=== PATIENT | male | born 1930 | race Caucasian/White ===

== ENCOUNTER 2016-10-02 07:57 | Emergency (ER) | payer MEDICARE ==
[~2016-10-02] VITALS: Ht 185.4 cm; Wt 97.0 kg
[~2016-10-02 07:57] MED LIST: ALLO300T PO; ATEN25TA PO; CLOP75TA22 PO; GABA300C10 PO; MECL12.52 PO; MECLIZINE PO; METF500T27 PO; NADO20TA12 PO; OMEP-110 PO; ROSU20TA PO; [UNRECOGNIZED DRUG - OTHER] IV
[2016-10-02] MEDS ORDERED: SODIUM CHLORIDE 0.9% 1,000 ML IV ONE (08:06)
[2016-10-02 08:31] LABS: HEMOGLOBIN 12.7 g/dL (13.7-18.0)
[2016-10-02 08:43] LABS: ASPARTATE AMINO TRANSFERASE 29 U/L (15-37); BLOOD UREA NITROGEN 29 mg/dL (7-18)
[2016-10-02 08:51] LABS: IS PT STATUS REG ER OR PRE ER? YES
[2016-10-02 09:00] VITALS: BP 132/85
[2016-10-02] MEDS ORDERED: MECL12.52 PO (09:35)
[2016-10-02] MEDS ORDERED: FURO20TA3 PO (09:42)
[2016-10-02] MEDS ORDERED: CLOP75TA22 PO (09:42)
[2016-10-02] MEDS ORDERED: OMEP20TA62 PO (09:42)
[2016-10-02] MEDS ORDERED: ALLO100T30 PO (09:42)
[2016-10-02] MEDS ORDERED: POTA20TA6 PO (09:42)
== END 2016-10-02 11:21 | disposition home or self-care (01) ==
LOC: ED 08:45
DX: I50.1 Left ventricular failure, unspecified (principal); I48.91 Unspecified atrial fibrillation; I48.92 Unspecified atrial flutter; I10 Essential (primary) hypertension; E11.9 Type 2 diabetes mellitus without complications; E78.00 Pure hypercholesterolemia, unspecified; K21.9 Gastro-esophageal reflux disease without esophagitis; E78.5 Hyperlipidemia, unspecified; M10.9 Gout, unspecified; Z96.641 Presence of right artificial hip joint; Z98.62 Peripheral vascular angioplasty status; Z96.89 Presence of other specified functional implants
CPT/HCPCS: 36415; 71010; 80053; 83880; 84484; 85025; 85610; 93005; 96360; 99285; J7030

== ENCOUNTER 2016-10-31 16:10 | Inpatient (IN) | payer MEDICARE ==
[~2016-10-31] VITALS: Ht 182.9 cm; Wt 92.0 kg
[~2016-10-31 16:10] MED LIST changes: +ALLO100T30 PO; +FURO20TA3 PO; +OMEP20TA62 PO; +POTA20TA6 PO
[2016-10-31] MEDS ORDERED: SODIUM CHLORIDE FLUSH 10ML SYR IVF ONE (17:00)
[2016-10-31] MEDS ORDERED: SODIUM CHLORIDE 0.9% 1,000ML IVBOLUS ONE (17:00)
[2016-10-31 17:40] LABS: IS PT STATUS REG ER OR PRE ER? YES
[2016-10-31] MEDS ORDERED: GLIM4TAB2 PO (17:51)
[2016-10-31] MEDS ORDERED: APIX2.5T PO (17:51)
[2016-10-31] MEDS ORDERED: METO25TA2 PO (17:51)
[2016-10-31] MEDS ORDERED: ASPIRIN 81 MG TABLET CHEW ONE (18:55)
[2016-10-31] MEDS ORDERED: ASPIRIN 81 MG TABLET CHEW PO ONE (19:00)
[2016-10-31 19:09] LABS: ASPARTATE AMINO TRANSFERASE 29 U/L (15-37); BLOOD UREA NITROGEN 21 mg/dL (7-18)
[2016-10-31] MEDS ORDERED: DOCUSATE 100 MG CAPSULE PO PRN (19:30)
[2016-10-31] MEDS ORDERED: TEMAZEPAM 15 MG CAPSULE PO PRN (19:30)
[2016-10-31] MEDS ORDERED: LABETALOL 5MG/ML, 20ML IV PRN (19:30)
[2016-10-31] MEDS ORDERED: OMEPRAZOLE 20 MG CAPSULE.DR PO SCH (21:00)
[2016-10-31] MEDS ORDERED: APIXABAN 2.5 MG TABLET PO SCH (21:00)
[2016-10-31 21:55] LABS: IS PT STATUS REG ER OR PRE ER? YES
[2016-10-31] MEDS ORDERED: FUROSEMIDE 20 MG/2 ML IV ONE (23:00)
[2016-10-31] MEDS ORDERED: FUROSEMIDE 20 MG/2 ML ONE (23:07)
[2016-10-31] MEDS: ATORVASTATIN 40 MG TABLET PO SCH (23:17)
[2016-10-31] MEDS ORDERED: INSULIN SINGLE DOSE, ER SQ-INSULIN ONE (23:26)
[2016-10-31] MEDS: INSULIN REGULAR 100 UNITS/ML, 3ML VIAL SQ-INSULIN SCH (23:39)
[2016-11-01 00:50] VITALS: BP 169/92
[2016-11-01 04:24] LABS: BLOOD UREA NITROGEN 22 mg/dL (7-18)
[2016-11-01 04:32] LABS: IS PT STATUS REG ER OR PRE ER? NO
[2016-11-01 05:05] LABS: ANISOCYTOSIS 1+
[2016-11-01 05:06] LABS: POLYCHROMASIA 1+
[2016-11-01 05:07] VITALS: BP 145/92
[2016-11-01] MEDS: INSULIN REGULAR 100 UNITS/ML, 3ML VIAL SQ-INSULIN SCH ×4 (07:00→22:30)
[2016-11-01 08:25] VITALS: BP 154/89
[2016-11-01] MEDS ORDERED: GLIMEPIRIDE 4 MG TABLET PO SCH (09:00)
[2016-11-01] MEDS: METOPROLOL SUCCINATE 25 MG TAB.ER.24H PO SCH (09:41)
[2016-11-01] MEDS: APIXABAN 2.5 MG TABLET PO SCH ×2 (09:41→22:30)
[2016-11-01] MEDS: ASPIRIN 81 MG TABLET CHEW PO SCH (09:41)
[2016-11-01] MEDS: POTASSIUM CHLORIDE 20 MEQ TAB.ER.PRT PO SCH (09:41)
[2016-11-01] MEDS: ALLOPURINOL 100 MG TABLET PO SCH (09:41)
[2016-11-01] MEDS ORDERED: REGADENOSON 0.4 MG/5 ML SYRINGE ONE (11:07)
[2016-11-01 12:44] VITALS: BP 132/79
[2016-11-01 20:00] VITALS: BP 143/79
[2016-11-01] MEDS: ATORVASTATIN 40 MG TABLET PO SCH (22:30)
[2016-11-02 00:25] VITALS: BP 162/90
[2016-11-02 05:21] LABS: BLOOD UREA NITROGEN 22 mg/dL (7-18)
[2016-11-02] MEDS: INSULIN REGULAR 100 UNITS/ML, 3ML VIAL SQ-INSULIN SCH ×4 (07:00→21:00)
[2016-11-02 07:50] VITALS: BP 157/92
[2016-11-02] MEDS: ALLOPURINOL 100 MG TABLET PO SCH (10:12)
[2016-11-02] MEDS: ASPIRIN 81 MG TABLET CHEW PO SCH (10:13)
[2016-11-02] MEDS: POTASSIUM CHLORIDE 20 MEQ TAB.ER.PRT PO SCH (10:13)
[2016-11-02] MEDS: APIXABAN 2.5 MG TABLET PO SCH ×2 (10:13→21:49)
[2016-11-02] MEDS: METOPROLOL SUCCINATE 25 MG TAB.ER.24H PO SCH (10:13)
[2016-11-02 15:18] VITALS: BP 166/79
[2016-11-02 19:10] VITALS: BP 118/81
[2016-11-02] MEDS: ATORVASTATIN 40 MG TABLET PO SCH (21:49)
[2016-11-03 01:35] VITALS: BP 167/83
[2016-11-03] MEDS: INSULIN REGULAR 100 UNITS/ML, 3ML VIAL SQ-INSULIN SCH ×3 (07:00→16:00)
[2016-11-03] MEDS ORDERED: INSU100V5 SQ-INSULIN (07:26)
[2016-11-03 07:31] VITALS: BP 147/87
[2016-11-03] MEDS: ASPIRIN 81 MG TABLET CHEW PO SCH (08:35)
[2016-11-03] MEDS: APIXABAN 2.5 MG TABLET PO SCH (08:35)
[2016-11-03] MEDS: ALLOPURINOL 100 MG TABLET PO SCH (08:36)
[2016-11-03] MEDS: POTASSIUM CHLORIDE 20 MEQ TAB.ER.PRT PO SCH (08:36)
[2016-11-03] MEDS: METOPROLOL SUCCINATE 25 MG TAB.ER.24H PO SCH (08:38)
[2016-11-03 13:30] VITALS: BP 158/86
== END 2016-11-03 18:32 | DRG 64 ==
LOC: ED 18:51 → EDIP 19:00 → 5SO 11-01 00:30
PROVIDERS: ADMIT Internal Medicine; ATTEND Internal Medicine
DX: I63.9 Cerebral infarction, unspecified (principal); I50.43 Acute on chronic combined systolic (congestive) and diastolic (congestive) heart failure; N17.9 Acute kidney failure, unspecified; I48.92 Unspecified atrial flutter; F05 Delirium due to known physiological condition; I13.0 Hypertensive heart and chronic kidney disease with heart failure and stage 1 through stage 4 chronic kidney disease, or unspecified chronic kidney disease; D68.69 Other thrombophilia; D69.6 Thrombocytopenia, unspecified; E11.42 Type 2 diabetes mellitus with diabetic polyneuropathy; N18.3 Chronic kidney disease, stage 3 (moderate); E78.00 Pure hypercholesterolemia, unspecified; I25.10 Atherosclerotic heart disease of native coronary artery without angina pectoris; I48.91 Unspecified atrial fibrillation; I77.810 Thoracic aortic ectasia; K21.9 Gastro-esophageal reflux disease without esophagitis; M10.9 Gout, unspecified; Z79.01 Long term (current) use of anticoagulants; Z83.3 Family history of diabetes mellitus; Z87.891 Personal history of nicotine dependence; Z95.0 Presence of cardiac pacemaker; Z95.2 Presence of prosthetic heart valve; Z95.5 Presence of coronary angioplasty implant and graft
CPT/HCPCS: 36415; 70450; 71010; 78452; 80048; 80053; 80061; 81003; 82962; 83036; 83735; 83880; 84439; 84443; 84484; 85025; 85610; 93005; 93017; 93306; 93880; J1815; J2785; A9502; C9898; J1940; J7030

== ENCOUNTER 2016-12-09 10:08 | Emergency (ER) | payer MEDICARE ==
[~2016-12-09] VITALS: Ht 185.4 cm; Wt 96.0 kg
[~2016-12-09 10:08] MED LIST changes: +APIX2.5T PO; +GLIM4TAB2 PO; +INSU100V5 SQ-INSULIN; +METO25TA2 PO
[2016-12-09] MEDS ORDERED: SODIUM CHLORIDE 0.9% 1,000 ML IV ONE (10:31)
[2016-12-09] MEDS ORDERED: BACITRACIN ZINC OINT 500U/GM, 0.9 GM ONE (10:58)
[2016-12-09] MEDS ORDERED: SODIUM CHLORIDE FLUSH 10ML SYR IVF ONE (11:00)
[2016-12-09 11:22] LABS: BLOOD UREA NITROGEN 19 mg/dL (7-18)
[2016-12-09 11:28] LABS: IS PT STATUS REG ER OR PRE ER? YES
[2016-12-09] MEDS ORDERED: ASPIRIN 81 MG TABLET CHEW PO ONE (11:30)
[2016-12-09] MEDS ORDERED: ASPIRIN 81 MG TABLET CHEW ONE (11:34)
[2016-12-09] MEDS ORDERED: OMEP20TA62 PO (11:39)
[2016-12-09 14:11] LABS: IS PT STATUS REG ER OR PRE ER? YES
[2016-12-09 15:01] VITALS: BP 144/84
== END 2016-12-09 15:04 | disposition home or self-care (01) ==
LOC: ED 11:32
DX: S50.811A Abrasion of right forearm, initial encounter (principal); R55 Syncope and collapse; R79.89 Other specified abnormal findings of blood chemistry; I11.0 Hypertensive heart disease with heart failure; E78.00 Pure hypercholesterolemia, unspecified; K21.9 Gastro-esophageal reflux disease without esophagitis; M10.9 Gout, unspecified; E78.5 Hyperlipidemia, unspecified; E11.9 Type 2 diabetes mellitus without complications; Z96.89 Presence of other specified functional implants; Z98.62 Peripheral vascular angioplasty status; Z96.641 Presence of right artificial hip joint; X58.XXXA Exposure to other specified factors, initial encounter; Y93.89 Activity, other specified; Y92.89 Other specified places as the place of occurrence of the external cause; Y99.8 Other external cause status
CPT/HCPCS: 36415; 71010; 80048; 82040; 84484; 85025; 93005; 99285

== ENCOUNTER 2017-02-06 07:30 | Inpatient (IN) | payer MEDICARE ==
[~2017-02-06] VITALS: Ht 185.4 cm; Wt 98.7 kg
[2017-02-06] MEDS ORDERED: PANTOPRAZOLE 80 MG in SODIUM CHLORIDE 0.9% 100 ML IV SCH (07:45)
[2017-02-06] MEDS ORDERED: PANTOPRAZOLE 80 MG in SODIUM CHLORIDE 0.9% 50 ML IVPB ONE (07:45)
[2017-02-06] MEDS ORDERED: SODIUM CHLORIDE 0.9% 1,000ML IVBOLUS ONE (08:00)
[2017-02-06] MEDS ORDERED: SODIUM CHLORIDE FLUSH 10ML SYR IVF ONE (08:00)
[2017-02-06 08:20] LABS: ASPARTATE AMINO TRANSFERASE 18 U/L (15-37); BLOOD UREA NITROGEN 29 mg/dL (7-18)
[2017-02-06 08:31] LABS: IS PT STATUS REG ER OR PRE ER? YES
[2017-02-06 08:41] LABS: HEMATOCRIT 33.2 % (39.2-51.8); HEMOGLOBIN 10.5 g/dL (13.7-18.0); WHITE BLOOD COUNT 4.3 x10^3/uL (3.4-10)
[2017-02-06] MEDS ORDERED: D5%-0.45NACL+KCL 20MEQ 1,000 ML IV ONE (09:17)
[2017-02-06] MEDS ORDERED: SODIUM CHLORIDE FLUSH 10ML SYR IVF PRN (09:30)
[2017-02-06] MEDS ORDERED: FENTANYL PF 100 MCG/2ML ONE (10:47)
[2017-02-06] MEDS ORDERED: MIDAZOLAM 1 MG/ML, 5ML ONE (10:48)
[2017-02-06] MEDS ORDERED: OMNIPAQUE 350 MG/ML, 100ML BOTTLE ONE (12:32)
[2017-02-06 12:33] LABS: FERRITIN 23.5 ng/mL (26-388)
[2017-02-06] MEDS ORDERED: ONDANSETRON 2MG/ML, 2ML IVPush PRN (14:00)
[2017-02-06] MEDS ORDERED: ACETAMINOPHEN 325 MG TABLET PO PRN (14:00)
[2017-02-06] MEDS ORDERED: TEMAZEPAM 15 MG CAPSULE PO PRN (14:00)
[2017-02-06] MEDS ORDERED: IRON DEXTRAN IV PER PHARMACY IV PRN (14:00)
[2017-02-06 14:28] VITALS: BP 143/84
[2017-02-06] MEDS ORDERED: EPINEPHRINE 1 MG/ML, 1ML SQ ONE (14:30)
[2017-02-06] MEDS ORDERED: IRON DEXTRAN COMPLEX 25 MG in SODIUM CHLORIDE 0.9% 50 ML IV ONE (14:30)
[2017-02-06] MEDS ORDERED: SODIUM CHLORIDE 0.9% IV ONE ×2 (14:30→20:10)
[2017-02-06] MEDS ORDERED: IRON DEXTRAN COMPLEX IV ONE ×2 (14:30→20:10)
[2017-02-06 14:31] LABS: IS PT STATUS REG ER OR PRE ER? NO
[2017-02-06 18:58] VITALS: BP 146/81
[2017-02-06 20:00] LABS: IS PT STATUS REG ER OR PRE ER? NO
[2017-02-06] MEDS: ALLOPURINOL 100 MG TABLET PO SCH (22:20)
[2017-02-06] MEDS: PANTOPRAZOLE 40 MG IV IVPush SCH (22:20)
[2017-02-07 01:45] VITALS: BP 151/72
[2017-02-07 06:03] LABS: BLOOD UREA NITROGEN 20 mg/dL (7-18)
[2017-02-07 06:06] LABS: HEMATOCRIT 30.3 % (39.2-51.8); HEMOGLOBIN 9.8 g/dL (13.7-18.0)
[2017-02-07 07:55] VITALS: BP 145/82
[2017-02-07] MEDS ORDERED: NITROGLYCERIN 0.4 MG BOTTLE (25 TABS) SL ONE (09:39)
[2017-02-07] MEDS: ALLOPURINOL 100 MG TABLET PO SCH ×2 (09:40→20:50)
[2017-02-07] MEDS: PANTOPRAZOLE 40 MG IV IVPush SCH ×2 (09:42→20:50)
[2017-02-07] MEDS: METOPROLOL SUCCINATE 25 MG TAB.ER.24H PO SCH (09:42)
[2017-02-07] MEDS ORDERED: NITROGLYCERIN 0.4 MG BOTTLE (25 TABS) SL PRN (10:30)
[2017-02-07 12:54] VITALS: BP 118/68
[2017-02-07 19:37] VITALS: BP 132/68
[2017-02-07] MEDS ORDERED: ATORVASTATIN 40 MG TABLET PO SCH (21:00)
[2017-02-08 03:22] VITALS: BP 133/79
[2017-02-08 05:31] VITALS: BP_SYST 131; BP_SYST 137; BP_DIAS 81; BP_DIAS 85; BP_DIAS 86
[2017-02-08 05:35] LABS: WHITE BLOOD COUNT 3.9 x10^3/uL (3.4-10)
[2017-02-08 06:23] LABS: BLOOD UREA NITROGEN 17 mg/dL (7-18)
[2017-02-08 08:15] VITALS: BP 127/75
[2017-02-08] MEDS: METOPROLOL SUCCINATE 25 MG TAB.ER.24H PO SCH (08:17)
[2017-02-08] MEDS: ALLOPURINOL 100 MG TABLET PO SCH (08:17)
[2017-02-08] MEDS: PANTOPRAZOLE 40 MG IV IVPush SCH (08:17)
[2017-02-08 13:09] VITALS: BP 131/72
[2017-02-08] MEDS ORDERED: ACETAMINOPHEN 325 MG TABLET PO PRN (15:30)
[2017-02-08] MEDS ORDERED: TEMAZEPAM 15 MG CAPSULE PO PRN (15:30)
[2017-02-08] MEDS ORDERED: NITROGLYCERIN 0.4 MG BOTTLE (25 TABS) SL PRN (15:30)
[2017-02-08] MEDS ORDERED: ONDANSETRON 2MG/ML, 2ML IVPush PRN (15:30)
[2017-02-08] MEDS ORDERED: MECL-76 PO (16:50)
== END 2017-02-08 17:43 | disposition home or self-care (01) | DRG 300 ==
LOC: ED 08:44 → EDIP 09:17 → 5SO 14:16
PROVIDERS: ADMIT Internal Medicine; ATTEND Internal Medicine
PROC: 0DJ08ZZ Inspection of Upper Intestinal Tract, Via Natural or Artificial Opening Endoscopic (ICD-10-PCS; principal; 2017-02-06 10:30)
DX: I86.4 Gastric varices (principal); K92.2 Gastrointestinal hemorrhage, unspecified; K76.6 Portal hypertension; E11.22 Type 2 diabetes mellitus with diabetic chronic kidney disease; I13.0 Hypertensive heart and chronic kidney disease with heart failure and stage 1 through stage 4 chronic kidney disease, or unspecified chronic kidney disease; I50.42 Chronic combined systolic (congestive) and diastolic (congestive) heart failure; N18.3 Chronic kidney disease, stage 3 (moderate); D62 Acute posthemorrhagic anemia; D69.6 Thrombocytopenia, unspecified; D50.9 Iron deficiency anemia, unspecified; D72.821 Monocytosis (symptomatic); E11.40 Type 2 diabetes mellitus with diabetic neuropathy, unspecified; E11.65 Type 2 diabetes mellitus with hyperglycemia; E78.00 Pure hypercholesterolemia, unspecified; E78.5 Hyperlipidemia, unspecified; I25.10 Atherosclerotic heart disease of native coronary artery without angina pectoris; I48.91 Unspecified atrial fibrillation; K21.9 Gastro-esophageal reflux disease without esophagitis; K22.2 Esophageal obstruction; K29.60 Other gastritis without bleeding; K29.90 Gastroduodenitis, unspecified, without bleeding; K31.89 Other diseases of stomach and duodenum; K44.9 Diaphragmatic hernia without obstruction or gangrene; K76.0 Fatty (change of) liver, not elsewhere classified; M10.9 Gout, unspecified; Z66 Do not resuscitate; Z79.01 Long term (current) use of anticoagulants; Z80.1 Family history of malignant neoplasm of trachea, bronchus and lung; Z82.49 Family history of ischemic heart disease and other diseases of the circulatory system; Z83.3 Family history of diabetes mellitus; Z85.46 Personal history of malignant neoplasm of prostate; Z85.72 Personal history of non-Hodgkin lymphomas; Z87.891 Personal history of nicotine dependence; Z92.21 Personal history of antineoplastic chemotherapy; Z95.0 Presence of cardiac pacemaker; Z95.2 Presence of prosthetic heart valve; Z95.5 Presence of coronary angioplasty implant and graft; Z96.1 Presence of intraocular lens; Z96.641 Presence of right artificial hip joint; Z96.652 Presence of left artificial knee joint; Z98.41 Cataract extraction status, right eye; Z98.42 Cataract extraction status, left eye
CPT/HCPCS: 36415; 74177; 80048; 80053; 82140; 82607; 82728; 82746; 83036; 83540; 83550; 83605; 84443; 84484; 85025; 85610; 85730; 86677; 86850; 86900; 93005; 96365; 96366; 96368; J1750; Q9967; C9113; J7030; J7050

== ENCOUNTER 2017-07-25 13:39 | Emergency (ER) | payer MEDICARE ==
[~2017-07-25] VITALS: Ht 182.9 cm; Wt 95.0 kg
[~2017-07-25 13:39] MED LIST changes: -CLOP75TA22 PO; +CLOP75TA52 PO; +MECL-76 PO
[2017-07-25] MEDS ORDERED: SODIUM CHLORIDE 0.9% 1,000 ML IV ONE (13:46)
[2017-07-25] MEDS ORDERED: ONDANSETRON 2MG/ML, 2ML IVPush ONE (14:00)
[2017-07-25] MEDS ORDERED: PLEASE ENTER HEIGHT AND WEIGHT MC SCH (14:00)
[2017-07-25] MEDS ORDERED: SODIUM CHLORIDE FLUSH 10ML SYR IVF ONE (14:00)
[2017-07-25] MEDS ORDERED: DONE5TAB14 PO (14:02)
[2017-07-25] MEDS ORDERED: ONDANSETRON 2MG/ML, 2ML ONE (14:07)
[2017-07-25 14:20] LABS: CHLORIDE 107 mmol/L (98-107)
[2017-07-25 14:21] LABS: ALANINE AMINOTRANSFERASE 18 U/L (12-78); ALBUMIN 3.4 g/dL (3.4-5.0); ANION GAP 10 mmol/L (5-15); CALCIUM 8.5 mg/dL (8.5-10.1); CREATININE 1.21 mg/dL (0.7-1.3)
[2017-07-25 14:22] LABS: ALKALINE PHOSPHATASE 71 U/L (45-117); BILIRUBIN,TOTAL 1.6 mg/dL (0.2-1.0); TOTAL PROTEIN 6.6 g/dL (6.4-8.2)
[2017-07-25 14:42] LABS: MICROSCOPIC NOT IND
[2017-07-25 14:43] LABS: BASOPHILS # (AUTO) 0.01 x10^3/uL (0-0.1); BASOPHILS % (AUTO) 0 % (0-1); EOSINOPHILS # (AUTO) 0.01 x10^3/uL (0-0.4); EOSINOPHILS % (AUTO) 0 % (1-7); LYMPHOCYTES # (AUTO) 0.65 x10^3/uL (1-3.4); LYMPHOCYTES % (AUTO) 6 % (22-44); MD SCAN; MEAN CORPUSCULAR HEMOGLOBIN 33.4 pg (27.5-34.5); MEAN CORPUSCULAR HGB CONC 33.6 g/dL (33.2-36.2); MEAN CORPUSCULAR VOLUME 99.3 fL (81-97); MONOCYTES # (AUTO) 0.57 x10^3/uL (0.2-0.8); MONOCYTES % (AUTO) 6 % (2-9); NEUTROPHILS # (AUTO) 9.14 x10^3/uL (1.8-6.8); NEUTROPHILS % (AUTO) 88 % (42-75); PLATELET COUNT 70 x10^3/uL (130-400); RED BLOOD COUNT 4.36 x10^6/uL (4.38-5.82); RED CELL DISTRIBUTION WIDTH 16.6 % (9.4-14.8)
[2017-07-25 14:48] LABS: CULTURE INDICATED? NO
[2017-07-25] MEDS ORDERED: OMNIPAQUE 350 MG/ML, 100ML BOTTLE ONE (15:35)
[2017-07-25 16:21] VITALS: BP 159/75
== END 2017-07-25 16:50 | disposition home or self-care (01) ==
LOC: ED 14:35
DX: R10.31 Right lower quadrant pain (principal); R11.0 Nausea; K21.9 Gastro-esophageal reflux disease without esophagitis; E78.00 Pure hypercholesterolemia, unspecified; E78.5 Hyperlipidemia, unspecified; I11.0 Hypertensive heart disease with heart failure; I50.9 Heart failure, unspecified; E11.9 Type 2 diabetes mellitus without complications
CPT/HCPCS: 36415; 74177; 80053; 81003; 83690; 85025; 93005; 96361; 96374; 99285; J2405; J7030; Q9967